=== PATIENT | male | born 1965 | race Caucasian/White ===

== ENCOUNTER 2016-10-08 03:49 | Emergency (ER) | payer SELFPAY | END 2016-10-08 03:50 | disposition home or self-care (01) | LOC: ER 03:49 | DX: L29.9 Pruritus, unspecified (principal); M79.641 Pain in right hand; M79.642 Pain in left hand; G89.29 Other chronic pain; B20 Human immunodeficiency virus [HIV] disease; F17.200 Nicotine dependence, unspecified, uncomplicated; Z88.0 Allergy status to penicillin; Z88.2 Allergy status to sulfonamides; Z88.8 Allergy status to other drugs, medicaments and biological substances | CPT/HCPCS: 96372; 99284; A9270-GY; J1200 ==

== ENCOUNTER 2016-10-20 13:12 | Observation (INO) | payer SELFPAY ==
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
--- NOTE | ~2016-10-20 | DS ---
Discharge Summary [address] [address] [facility] [place]. [address] NAME: PREETI HAYWOOD : 65 STATUS : DIS Mally PAT#: [id number] AGE: 51 ADM/REG DATE : 10/20/16 MR#: [id number] REPORT SERV DATE: 10/23/16 DICTATED BY: CJ JANE DATE: 10/22/16 REPORT STATUS : Draft TRANSCRIBED BY: MODL DATE: 10/22/16 ADMISSION DATE: 10/20/2016 DISCHARGE DATE: 10/22/2016 CONSULTANTS: 1. Eric Arnold M.D., Vascular Surgery. 2. Srinivas Lopez M.D., Infectious Disease. HOSPITAL COURSE: Please refer to yesterday's discharge summary. Dr. Srinivas Lopez had seen the patient and Dr. Arnold of Vascular Surgery. Dr. Arnold felt the patient's finger changes were typical of Buerger's disease and agreed with our recommendation for the discontinuation of all tobacco and the use of amlodipine, and he did not recommend any other further interventions at this point in time. I have left orders on 10/21/[address] Arnold was in agreement the patient could be discharged home thereafter; however, nursing did not comply with that. The patient did have the duplex arterial Doppler of his upper extremity revealing normal finding in the vasculature of his upper extremity. Discharge medications and plan will be the same as per the note from yesterday. Dr. Lopez's team is coordinating getting the patient's amlodipine covered by the [facility] [facility] and he will consider low-dose Lipitor given the patient's recent ischemic stroke when he was at [facility]; however, Dr. Lopez wants to evaluate that in the light of the other medicines the patient is taking and will order that himself. I spent 31 minutes today with the patient and with discharge planning. DICTATED BY: Cj Jane M.D. RSNaomy/MIS Cj Jane M.D. / [id number] CC: Meg Noguera M.D. Eric W Clayton, M.D.
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
[2016-10-20 15:05] LABS: BASOPHILS 0.6 %; BASOPHILS ABSOLUTE 0.06 10/3/uL (0.0-0.16); EOSINOPHILS 21.2 %; EOSINOPHILS ABSOLUTE 2.27 10/3/uL (0.0-0.53); HEMATOCRIT 37.6 % (40.0-51.0); HEMOGLOBIN 12.8 g/dL (13.6-17.8); IMMATURE GRANULOCYTES 0.2 %; IMMATURE GRANULOCYTES ABSOLUTE 0.02 10/3/uL (0.0-0.11); LYMPHOCYTES ABSOLUTE 0.96 10/3/uL (0.67-4.30); MEAN CORPUSCULAR HEMOGLOB 32.8 pg (26.0-34.0); MEAN CORPUSCULAR VOLUME 96.4 fL (80-100); MEAN PLATELET VOLUME 9.7 fL (9.2-13.0); MONOCYTES 7.1 %; MONOCYTES ABSOLUTE 0.76 10/3/uL (0.21-1.20); NEUTROPHILS 61.9 %; NEUTROPHILS ABSOLUTE 6.63 10/3/uL (2.02-8.40); PLATELET COUNT 307 10/3/uL (150-400); RBC DISTRIBUTION WIDTH 13.6 % (12.0-16.0); WHITE BLOOD CELLS 10.7 10/3/uL (4.5-10.5)
[2016-10-20 15:06] LABS: MANUAL DIFF NO %
[2016-10-20 15:14] LABS: PROTIME (NOT ORD) 12.8 SEC (12.0-14.5)
[2016-10-20 15:15] LABS: PARTIAL THROMBO TIME 31.5 SEC (22.5-37.2)
[2016-10-20 15:21] LABS: BUN (BLOOD UREA NITROGEN) 11 MG/DL (6-23); CALCIUM, SERUM 9.2 MG/DL (8.5-10.4); CHEST PAIN PROFILE TAT 0 Hrs 20 Mins; CHLORIDE, SERUM 108 MMOL/L (96-112); CO2 (CARBON DIOXIDE) 32 MMOL/L (24-34); CREATININE 0.75 MG/DL (0.70-1.30); GFR AFRICAN AMERICAN 123 ML/MIN (>=60); GFR NON AFRICAN AMERICAN 106 ML/MIN (>=60); GLUCOSE, SERUM 90 MG/DL (60-99); POTASSIUM, SERUM 4.2 MMOL/L (3.5-5.3); SODIUM, SERUM 142 MMOL/L (135-148); TROPONIN I <0.02 NG/ML (<0.05)
[2016-10-20 15:43] LABS: EOSINOPHILS 24 %; EOSINOPHILS ABSOLUTE (CALC) 2.57 10/3/uL (0.0-0.53); ER DIFF TAT 0 Hrs 42 Mins; LYMPHOCYTES 9 %; LYMPHOCYTES ABSOLUTE (CALC) 0.96 10/3/uL (0.67-4.30); MONOCYTES 6 %; MONOCYTES ABSOLUTE (CALC) 0.64 10/3/uL (0.21-1.20); NEUTROPHILS ABSOLUTE (CALC) 6.53 10/3/uL (2.02-8.40); SEGMENTED NEUTROPHIL (0) 61 %; TOTAL NUCLEATED CELLS 100
[2016-10-20 15:44] LABS: PLATELET ESTIMATE ADQ (ADEQUATE); RBC MORPHOLOGY NORM (NORMAL)
[2016-10-20] MEDS ORDERED: ISENTRESS400 MG PO (16:26)
[2016-10-20] MEDS ORDERED: ZITH600 PO (17:16)
[2016-10-20] MEDS ORDERED: [UNRECOGNIZED DRUG - OTHER] PO (17:16)
[2016-10-20] MEDS ORDERED: ATARAX50B PO (17:18)
[2016-10-20] MEDS ORDERED: BACDS PO (17:18)
[2016-10-20] MEDS ORDERED: ASAB PO (17:19)
[2016-10-20] MEDS ORDERED: ACET500CAP PO (17:19)
[2016-10-20] MEDS ORDERED: ALEVE220 MG PO (17:21)
[2016-10-20] MEDS ORDERED: VITAMIN B-12 LIQUID PO (17:22)
[2016-10-20 18:32] LABS: T4 (THYROXINE) TOTAL 9.1 MCG/DL (4.5-12.0); ULTRASENSITIVE TSH 2.02 MCIU/ML (0.358-3.740)
[2016-10-22] MEDS ORDERED: NORV5 PO (09:56)
[2016-10-22] MEDS ORDERED: T PO (09:56)
[2016-10-22] MEDS ORDERED: HABIT14 TOP (09:57)
== END 2016-10-22 16:17 | disposition home or self-care (01) ==
LOC: ER 13:12 → 1SO 19:34
PROVIDERS: Emergency Medicine
DX: R55 Syncope and collapse (principal); B20 Human immunodeficiency virus [HIV] disease; I73.9 Peripheral vascular disease, unspecified; F17.210 Nicotine dependence, cigarettes, uncomplicated; D72.819 Decreased white blood cell count, unspecified; D69.6 Thrombocytopenia, unspecified; Z88.0 Allergy status to penicillin; Z88.2 Allergy status to sulfonamides; Z88.8 Allergy status to other drugs, medicaments and biological substances; Z86.73 Personal history of transient ischemic attack (TIA), and cerebral infarction without residual deficits; Z79.82 Long term (current) use of aspirin; Z79.899 Other long term (current) drug therapy
CPT/HCPCS: 70450; 71010; 80048; 82955; 83735; 83880; 84436; 84443; 84484; 85025; 85610; 85730; 93005; 93923; 96372; 99291; A9270-GY; G0378

== ENCOUNTER 2016-10-27 12:00 | Inpatient (IN) | payer SELFPAY ==
--- NOTE | ~2016-10-27 | DS ---
Discharge Summary [facility] [address] [place]. [address] NAME: PREETI HAYWOOD : 65 STATUS : DIS IN PAT#: [id number] AGE: 51 ADM/REG DATE : 10/27/16 MR#: [id number] REPORT SERV DATE: 11/01/16 DICTATED BY: NIKOLAS LONDON DATE: 10/31/16 REPORT STATUS : Draft TRANSCRIBED BY: MODL DATE: 10/31/16 ADMISSION DATE: 10/27/2016 DISCHARGE DATE: 10/31/2016 REASON FOR ADMISSION: The patient came in with chief complaint of recurrent syncope, 51-year old male with a history of HIV, Buerger's disease, and CVA. DISCHARGE DIAGNOSES: 1. Recent syncope due to third-degree AV block, status post permanent pacemaker placement. 2. Human immunodeficiency virus/acquired immunodeficiency syndrome. 3. Hypertension. HOSPITAL COURSE: The patient was admitted and had Cardiology consult, was placed on telemetry and found to have a third-degree complete heart block. Dr. Simms was consulted as well. Originally, Dr. Gallegos had been consulted and then Dr. Simms was consulted for permanent pacemaker placement. The third-degree AV block was felt to be due to myocarditis. The patient had elevated CRP of 16.5 and ESR of 32. Infectious Disease saw the patient and did workup for occult infection, which has not turned up anything, so myocarditis is of unclear etiology. Dr. Simms would place the patient's permanent pacemaker. He has done well. Pacemaker functioning properly. The patient does have HIV/AIDS with CD4 count done here at the hospital, absolute CD4 is 96. He sees an HIV Clinic in [place], [place], that he will follow up with outpatient. The patient has been cleared by discharge by both Infectious Disease, Dr. Lopez, and Cardiology, Dr. Luis Eduardo Gallegos. The patient will follow up with Dr. Gallegos in six to eight weeks and with his HIV Clinic as scheduled. The patient does not have a prior primary care provider. Apparently, he is currently self-pay, but apparently will have [facility] benefits by the end of the month, so encouraged him to get in and see primary care with [facility] at the end of the month. DISCHARGE CONDITION: Stable. DISCHARGE MEDICATIONS: 1. Norvasc 5 mg p.o. daily. 2. Dapsone 100 mg p.o. q.h.s. 3. Hydrocodone 7.5/325 one tablet q.4-6 hours p.r.n. 4. Atarax 50 mg p.o. q.6 hours p.r.n. itching. 5. Vitamin B12, 1 mL sublingual daily. 6. Aspirin 81 mg p.o. daily. 7. Isentress 400 mg p.o. b.i.d. DISCHARGE PLAN: The patient is discharged home. Follow up with his HIV Clinic as scheduled. Establish primary care with the SD and follow up with Cardiology in six to eight weeks. DICTATED BY: Nikolas London APN Discharge Summary [address] [facility] [address] NAME: PREETI HAYWOOD : 65 STATUS : DIS IN PAT#: [id number] AGE: 51 ADM/REG DATE : 10/27/16 MR#: [id number] REPORT SERV DATE: 11/01/16 DICTATED BY: NIKOLAS LONDON DATE: 10/31/16 REPORT STATUS : Draft TRANSCRIBED BY: MIS DATE: 10/31/16 TDR/MIS Nikolas London APN / [id number] CC: Uriel Molina M.D. Srinivas Lopez M.D. Luis Eduardo Gallegos M.D. Fabio Simms M.D. [facility]
--- NOTE | ~2016-10-27 | CN ---
Consultation Report [facility] [address] [place]. [address] NAME: PREETI HAYWOOD : 65 STATUS : ADM Mally PAT#: [id number] AGE: 51 ADM/REG DATE : 10/27/16 MR#: [id number] REPORT SERV DATE: 10/29/16 DICTATED BY: MIRIAM SIMMS DATE: 10/28/16 REPORT STATUS : Draft TRANSCRIBED BY: MODAugustin DATE: 10/28/16 EP CONSULTATION DATE OF CONSULTATION: INDICATION: Syncope with complete transient AV block. HISTORY: The patient is a 51-year-old white male with a somewhat odd medical history. He was recently seen in [facility] with a TIA and readmitted with a syncopal spell recently at [facility]. The episode was felt to be vasovagal and he was sent home. He was placed on hydroxyzine, but continued to have spells. His states that they usually lasted less than a minute. They were associated with deep and hard breathing. During a portion of that time, he would be unresponsive, if she came over and shook him, she could get a response. He often was fatigued the remainder of the day. In the day prior to admission, he had two events; the week prior to admission, he had four events. Last night, he had several falls from his bed. He has no fever or chills. His main symptoms are chronic pain as well as fatigue. CURRENT HOME MEDICATIONS: Acetaminophen as directed, aspirin 81 a day, hydrocodone APAP 7.5/325 a day, hydroxyzine 50 q.8 hours p.r.n., raltegravir, potassium 400 b.i.d. vitamin B12 daily, amlodipine 5 a day, Claritin 10 per day, which he takes on his own. ALLERGIES OR INTOLERANCES: Sulfamethoxazole and trimethoprim from Bactrim (rash), sulfa containing antibiotics, codeine, lamivudine, abacavir, dolutegravir, all causing fever. SOCIAL HISTORY: He continues to smoke but is trying to quit. FAMILY HISTORY: Positive for coronary artery disease. He states his mother had some type of heart problem. He has a half sister with a defibrillator. PAST MEDICAL HISTORY/REVIEW OF SYSTEMS: Positive for HIV and Buerger's disease as noted above. 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 PHYSICAL EXAMINATION: GENERAL: Pleasant 51-year-old white male. VITAL SIGNS: Blood pressure 139/90, pulse 90 and regular, respirations 16. SKIN: No xanthelasmas. HEENT: Normocephalic. There is no pallor. Sclerae white. JVD is not elevated. CHEST: No crackles cardiac S1 normal, S2 physiologic. Abdomen soft extremities without edema. No clubbing. NEUROLOGIC: No focal deficits musculoskeletal no kyphosis. Consultation Report [place] [id number] [facility] [place]. [address] NAME: PREETI HAYWOOD : 65 STATUS : ADM Mally PAT#: [id number] AGE: 51 ADM/REG DATE : 10/27/16 MR#: [id number] REPORT SERV DATE: 10/29/16 DICTATED BY: MIRIAM SIMMS DATE: 10/28/16 REPORT STATUS : Draft TRANSCRIBED BY: MIS DATE: 10/28/16 LABORATORY DATA: BUN 14, creatinine 0.8. Hemoglobin 12.2, platelets 202,000. BNP 23.8. The baseline ECG shows sinus rhythm. Rhythm strips showed episodes of complete AV block with junctional escape beats. IMPRESSION: Transient symptomatic complete atrioventricular block. The patient will require pacemaker support. Risks and benefits have been discussed with the patient and his sister. NIKO/MIS Miriam Simms M.D. / [id number] CC: Uriel Molina M.D.
--- NOTE | ~2016-10-27 | HP ---
History And Physical [id number] [facility] [place]. [address] NAME: PREETI RODRIGUEZ : 65 STATUS : ADM Mally PAT#: [id number] AGE: 51 ADM/REG DATE : 10/27/16 MR#: [id number] REPORT SERV DATE: 10/27/16 DICTATED BY: KAREN CARBAJAL DATE: 10/27/16 REPORT STATUS : Draft TRANSCRIBED BY: MODL DATE: 10/27/16 DATE OF ADMISSION: 10/27/2016 REASON FOR ADMISSION: Recurrent syncope. HISTORY OF PRESENT ILLNESS: Mr. Rodriguez is a 51-year-old male with HIV, Buerger's disease, and a history of recent stroke, for which he was hospitalized in [place], [place], and ultimately released home, where he was readmitted here with recurrent syncopal spell, which was felt to be vasovagal due to the circumstances of psychosocial stressor. The patient has been home. He says he still feels strange after he takes hydroxyzine and has had episodes, where he feels like he has double vision with left-sided numbness lasting less than a minute with subsequent syncopal spell, somewhat groggy when he wakes up. In the wee hours this morning, however, the patient had been in bed and his sister heard a big thump on the ground. The patient fell out of bed without knowing that he had fallen. No memory of the fall, no memory of any strange dreams occurring before then. He woke without chest pain, but with mild cloudiness to his sensorium. This happened two times last night. He came to the emergency department for further evaluation and I was asked to admit. The patient denies fever and chills. Denies weight loss. Denies any difference in the swelling of his limbs. He does have chronic pain in his fingers from his Buerger's disease. He acknowledges most significantly very poor sleep. He has taken the hydroxyzine, which makes him fall asleep, but he cannot stay asleep. His sleep has been extremely disrupted in recent times. He also has episodes of dizziness, palpitations, and heavy breathing, but no history of convulsions. The patient denies headache. No nausea or vomiting. No other pains. REVIEW OF SYSTEMS: Remainder of review of systems are negative. PAST MEDICAL HISTORY: As mentioned above. MEDICATIONS: Aspirin, Lortab, Atarax, Isentress, B12, and Descovy. ALLERGIES: MULTIPLE ALLERGIES. FAMILY HISTORY: Significant for cardiovascular disease. SOCIAL HISTORY: The patient remains a smoker, although he says he is trying to quit. PHYSICAL EXAMINATION: VITAL SIGNS: On presentation, blood pressure 139/95, pulse 90, respirations 16, afebrile, and saturating 95%. GENERAL: Awake, alert, and oriented x3, in no apparent distress. HEENT: Pupils equal and reactive to light. Extraocular movements are intact. No cranial nerve deficits. Moist mucous membranes. Normal oropharynx. NECK: Revealed no jugular venous distention, carotid bruits, lymphadenopathy, or goiter. CARDIAC: Regular rate and rhythm. No murmurs, gallops, or rubs. History And Physical [address] [address] NAME: PREETI RODRIGUEZ : 65 STATUS : ADM Mally PAT#: [id number] AGE: 51 ADM/REG DATE : 10/27/16 MR#: [id number] REPORT SERV DATE: 10/27/16 DICTATED BY: KAREN CARBAJAL DATE: 10/27/16 REPORT STATUS : Draft TRANSCRIBED BY: MIS DATE: 10/27/16 LUNGS: Clear to auscultation bilaterally. Good excursion. ABDOMEN: Nondistended and nontender. Bowel sounds normoactive. EXTREMITIES: No edema. He did have significant acrocyanosis strictly of his fingers and he had digital clubbing in all fingers and toes. Some ischemic ulcers are present on some of his fingers as well. NEUROLOGIC: 5/5 strength in all four extremities. Normal sensory function x4 other than some finger tip numbness. He had normal rawqhy-dz-xhgn test. No visual field deficits. PSYCHIATRIC: Appropriate. LABORATORY EVALUATION: Sodium 140, potassium 4.1, chloride 110, bicarb 28, BUN 14, creatinine 0.8, glucose 115. White count 8000, H and H 13/37, platelets 202. D-dimer was negative. CBC also significant for eosinophilia. Urine drug screen positive for opiates. CT brain was negative. Chest x-ray was negative, reviewed by me. EKG reviewed by me was normal sinus rhythm. No ST or T-wave changes. ASSESSMENT AND PLAN: 1. Spells of recurrent syncope with a recent stroke workup in [place]. This is not a primary cerebrovascular event based on the symptoms; however, seizure is on the differential diagnosis, tachyarrhythmias are as well, but I think it is most likely due to hydroxyzine side effects and severe sleep disruption. We will have him in telemetry over night. We will get the records from [place]. We will screen his BNP, his prolactin levels, and an EEG will be done for the sake of completeness. Hydroxyzine will be discontinued. Other antiallergy therapies will be used such as Claritin and Pepcid. We will also try to help him with restoring his sleep by initiating trazodone therapy, which also should be noted to have significant antihistamine effect. 2. Buerger's disease. Strong recommendation to quit smoking, nothing else to say. 3. 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 I do not know his CD4 count. We will check that. 4. Eosinophilia as mentioned. RSM/MODL Karen Carbajal M.D. / [id number] CC: Meg Zamarripa M.D.
--- NOTE | ~2016-10-27 | HP ---
History And Physical [id number] [place]. [address] NAME: PARDEEP RODRIGUEZ : 65 STATUS : ADM Mally PAT#: [id number] AGE: 51 ADM/REG DATE : 10/27/16 MR#: [id number] REPORT SERV DATE: 10/28/16 DICTATED BY: LUIS EDUARDO GALLEGOS DATE: 10/28/16 REPORT STATUS : Draft TRANSCRIBED BY: MODL DATE: 10/28/16 DATE OF ADMISSION: 10/27/2016 REASON FOR ADMISSION: Pardeep Rodriguez is a 51-year-old male, who is referred for complete heart block. CVD PHYSICIAN: Luis Eduardo Gallegos M.D. HISTORY OF PRESENT ILLNESS: Mr. Pardeep Rodriguez has had a long history of recurrent episodes of dizziness and passing out. He was seen apparently at [facility] two years ago, and at that time, he was told bottom part of the heart does not talk to the top part of his heart and a pacemaker was recommended, but then he got so much better, he said that they sent him home. He continues of have frequent spells of passing out sometimes up to two to three times a day. They last one to two minutes. REVIEW OF SYSTEMS: No chest pain or chest discomfort. No seizure activity. No loss of bowel or bladder control. He does have dermatitis. No petechiae. No lower extremity edema. No palpitations. SOCIAL HISTORY: He smokes, but does not drink. He works as a commercial estimator. FAMILY HISTORY: Negative for early heart disease. PHYSICAL EXAMINATION: VITAL SIGNS: Blood pressure is 117/66, pulse is 77, and he is afebrile. GENERAL: Resting comfortably. Nutritional status appears adequate. EYES: PERRLA. LUNGS: No labored use of accessory muscles. Without rales or wheezes. COR: PMI is not displaced. No thrills or heaves. NL S1 and S2. No S3, murmur, click or rub. PULSES: Carotids without bruits. ABD: +BS, nontender. EXT: No cyanosis, clubbing or edema. SKIN: No petechiae. NEURO: Alert and oriented. Does not appear anxious or depressed. LABORATORY EVALUATION: Telemetry shows episodes of complete heart block preceded by a normal SD interval beat. ASSESSMENT: At this time, intermittent complete heart block, will require pacemaker placement. I have discussed this with him and he understands and agrees to proceed. GG/ERNIEL History And Physical [place] [id number] [facility] [address] [place] [address]. [address] NAME: PARDEEP RODRIGUEZ : 65 STATUS : ADM Mally PAT#: [id number] AGE: 51 ADM/REG DATE : 10/27/16 MR#: [id number] REPORT SERV DATE: 10/28/16 DICTATED BY: LUIS EDUARDO GALLEGOS DATE: 10/28/16 REPORT STATUS : Draft TRANSCRIBED BY: MIS DATE: 10/28/16 Luis Eduardo Gallegos M.D. / [id number] CC: Uriel Molina M.D. NO PCP
[2016-10-27 11:50] LABS: BASOPHILS 0.5 %; BASOPHILS ABSOLUTE 0.04 10/3/uL (0.0-0.16); EOSINOPHILS 17.4 %; EOSINOPHILS ABSOLUTE 1.32 10/3/uL (0.0-0.53); ER CBC TAT 0 Hrs 09 Mins; HEMATOCRIT 37.4 % (40.0-51.0); HEMOGLOBIN 12.7 g/dL (13.6-17.8); IMMATURE GRANULOCYTES 0.1 %; IMMATURE GRANULOCYTES ABSOLUTE 0.01 10/3/uL (0.0-0.11); LYMPHOCYTES 12.1 %; LYMPHOCYTES ABSOLUTE 0.92 10/3/uL (0.67-4.30); MEAN CORPUSCULAR HEMOGLOB 32.7 pg (26.0-34.0); MEAN CORPUSCULAR VOLUME 96.4 fL (80-100); MEAN PLATELET VOLUME 9.6 fL (9.2-13.0); MONOCYTES 7.3 %; MONOCYTES ABSOLUTE 0.55 10/3/uL (0.21-1.20); NEUTROPHILS 62.6 %; NEUTROPHILS ABSOLUTE 4.74 10/3/uL (2.02-8.40); RBC DISTRIBUTION WIDTH 13.5 % (12.0-16.0); RED CELL COUNT 3.88 10/6/uL (4.7-6.1); WHITE BLOOD CELLS 7.6 10/3/uL (4.5-10.5)
[2016-10-27 11:51] LABS: MANUAL DIFF NO %; PLATELET COUNT 202 10/3/uL (150-400)
[2016-10-27 11:59] LABS: PARTIAL THROMBO TIME 31.1 SEC (22.5-37.2); PROTIME (NOT ORD) 13.5 SEC (12.0-14.5)
[~2016-10-27 12:00] MED LIST: ACET500CAP PO; ALEVE220 MG PO; ASAB PO; ATARAX50B PO; BACDS PO; HABIT14 TOP; ISENTRESS400 MG PO; NORV5 PO; T PO; VITAMIN B-12 LIQUID PO; ZITH600 PO; [UNRECOGNIZED DRUG - OTHER] PO
[2016-10-27 12:07] LABS: ALBUMIN 3.4 G/DL (3.5-5.0); BUN (BLOOD UREA NITROGEN) 14 MG/DL (6-23); CALCIUM, SERUM 9.1 MG/DL (8.5-10.4); CHEST PAIN PROFILE TAT 0 Hrs 26 Mins; CHLORIDE, SERUM 107 MMOL/L (96-112); CO2 (CARBON DIOXIDE) 28 MMOL/L (24-34); GFR AFRICAN AMERICAN 120 ML/MIN (>=60); GFR NON AFRICAN AMERICAN 103 ML/MIN (>=60); POTASSIUM, SERUM 4.1 MMOL/L (3.5-5.3); SGOT(AST) 11 U/L (5-40); SGPT(ALT) 17 U/L (5-65); SODIUM, SERUM 140 MMOL/L (135-148); TOTAL BILIRUBIN 0.4 MG/DL (0-1.2); TOTAL PROTEIN 7.6 G/DL (6.0-8.5); TROPONIN I <0.02 NG/ML (<0.05)
[2016-10-27 12:08] LABS: ACETAMINOPHEN LEVEL (TYLENOL) < 2.0 MCG/ML (10.0-20.0); ALCOHOL < 10 MG/DL (0); ALKALINE PHOSPHATASE 82 U/L (45-117); DIRECT BILIRUBIN < 0.1 MG/DL (0.0-0.4); GLUCOSE, SERUM 115 MG/DL (60-99); INDIRECT BILIRUBIN(NOT ORDER) 0.3 MG/DL (0.1-0.9)
[2016-10-27 12:10] LABS: D-DIMER QUANTITATIVE 0.55 ug/mLFEU (< 0.50)
[2016-10-27 12:12] LABS: AMPHETAMINES (NOT ORD) NEG (NEG); BARBITURATES (NOT ORDERED NEG (NEG); BENZODIAZEPINES (NOT ORD) NEG (NEG); CANNABINOIDS (THC) NEG (NEG); COCAINE (NOT ORDERED) NEG (NEG); OPIATES POS (NEG); PHENCYCLIDINE(PCP) NEG (NEG); TRICYCLICS NEG (NEG)
[2016-10-27] MEDS ORDERED: NORCO1 TA2 PO (17:14)
[2016-10-27] MEDS ORDERED: ATARAX50B PO (17:15)
[2016-10-27] MEDS ORDERED: ASAB PO (17:16)
[2016-10-27] MEDS ORDERED: ISENTRESS400 MG PO (17:16)
[2016-10-27] MEDS ORDERED: VITAMIN B SL (17:16)
[2016-10-27] MEDS ORDERED: ACET500CAP PO (17:17)
[2016-10-29 04:54] LABS: BASOPHILS ABSOLUTE 0.06 10/3/uL (0.0-0.16); EOSINOPHILS 23.8 %; EOSINOPHILS ABSOLUTE 1.41 10/3/uL (0.0-0.53); HEMATOCRIT 37.4 % (40.0-51.0); HEMOGLOBIN 12.9 g/dL (13.6-17.8); IMMATURE GRANULOCYTES 0.2 %; IMMATURE GRANULOCYTES ABSOLUTE 0.01 10/3/uL (0.0-0.11); LYMPHOCYTES ABSOLUTE 0.95 10/3/uL (0.67-4.30); MEAN CORPUS HGB CONC 34.5 g/dL (32.0-36.0); MEAN CORPUSCULAR HEMOGLOB 32.7 pg (26.0-34.0); MEAN CORPUSCULAR VOLUME 94.9 fL (80-100); MEAN PLATELET VOLUME 9.6 fL (9.2-13.0); MONOCYTES 8.1 %; MONOCYTES ABSOLUTE 0.48 10/3/uL (0.21-1.20); NEUTROPHILS 50.9 %; NEUTROPHILS ABSOLUTE 3.02 10/3/uL (2.02-8.40); PLATELET COUNT 184 10/3/uL (150-400); RBC DISTRIBUTION WIDTH 13.4 % (12.0-16.0); RED CELL COUNT 3.94 10/6/uL (4.7-6.1); WHITE BLOOD CELLS 5.9 10/3/uL (4.5-10.5)
[2016-10-29 04:56] LABS: MANUAL DIFF NO %
[2016-10-29 05:08] LABS: C-REACTIVE PROTEIN 16.5 MG/L (<8.0); CHLORIDE, SERUM 109 MMOL/L (96-112); CO2 (CARBON DIOXIDE) 26 MMOL/L (24-34); CREATININE 0.88 MG/DL (0.70-1.30); GFR AFRICAN AMERICAN 115 ML/MIN (>=60); GFR NON AFRICAN AMERICAN 99 ML/MIN (>=60); GLUCOSE, SERUM 99 MG/DL (60-99); POTASSIUM, SERUM 3.9 MMOL/L (3.5-5.3); SODIUM, SERUM 141 MMOL/L (135-148)
[2016-10-29 05:09] LABS: BUN (BLOOD UREA NITROGEN) 20 MG/DL (6-23); RHEUMATOID FACTOR QUANT < 10 IU/ML (0-15)
[2016-10-29 08:56] LABS: SED RATE 32 MM/HR (0-15)
[2016-10-30 05:38] LABS: BASOPHILS 0.5 %; BASOPHILS ABSOLUTE 0.06 10/3/uL (0.0-0.16); EOSINOPHILS 12.9 %; EOSINOPHILS ABSOLUTE 1.46 10/3/uL (0.0-0.53); HEMATOCRIT 38.4 % (40.0-51.0); HEMOGLOBIN 12.8 g/dL (13.6-17.8); IMMATURE GRANULOCYTES 0.4 %; IMMATURE GRANULOCYTES ABSOLUTE 0.04 10/3/uL (0.0-0.11); MEAN CORPUS HGB CONC 33.3 g/dL (32.0-36.0); MEAN CORPUSCULAR HEMOGLOB 31.4 pg (26.0-34.0); MEAN CORPUSCULAR VOLUME 94.1 fL (80-100); MEAN PLATELET VOLUME 9.9 fL (9.2-13.0); MONOCYTES 5.1 %; MONOCYTES ABSOLUTE 0.58 10/3/uL (0.21-1.20); NEUTROPHILS 73.1 %; NEUTROPHILS ABSOLUTE 8.26 10/3/uL (2.02-8.40); PLATELET COUNT 184 10/3/uL (150-400); RBC DISTRIBUTION WIDTH 13.6 % (12.0-16.0); RED CELL COUNT 4.08 10/6/uL (4.7-6.1)
[2016-10-30 05:39] LABS: BUN (BLOOD UREA NITROGEN) 22 MG/DL (6-23); CALCIUM, SERUM 9.1 MG/DL (8.5-10.4); CHLORIDE, SERUM 108 MMOL/L (96-112); CO2 (CARBON DIOXIDE) 26 MMOL/L (24-34); CREATININE 0.96 MG/DL (0.70-1.30); GFR AFRICAN AMERICAN 106 ML/MIN (>=60); GFR NON AFRICAN AMERICAN 91 ML/MIN (>=60); GLUCOSE, SERUM 104 MG/DL (60-99); POTASSIUM, SERUM 3.8 MMOL/L (3.5-5.3); SODIUM, SERUM 142 MMOL/L (135-148)
[2016-10-30 05:53] LABS: MANUAL DIFF NO %; WHITE BLOOD CELLS 11.3 10/3/uL (4.5-10.5)
[2016-10-30 13:55] LABS: CD4/CD8 RATIO 0.16 to 1.0 (1.00-3.00); CD8 72.6 % (12.0-38.0); LYMPHOCYTES 11.7 % (15.0-48.0); SOURCE Blood (()); WBC 7.1 K/uL (3.8-11.0)
[2016-10-31 05:31] LABS: BASOPHILS 0.5 %; BASOPHILS ABSOLUTE 0.04 10/3/uL (0.0-0.16); EOSINOPHILS 17.1 %; EOSINOPHILS ABSOLUTE 1.39 10/3/uL (0.0-0.53); HEMATOCRIT 36.1 % (40.0-51.0); HEMOGLOBIN 12.4 g/dL (13.6-17.8); IMMATURE GRANULOCYTES 0.1 %; IMMATURE GRANULOCYTES ABSOLUTE 0.01 10/3/uL (0.0-0.11); LYMPHOCYTES 12.1 %; LYMPHOCYTES ABSOLUTE 0.98 10/3/uL (0.67-4.30); MEAN CORPUS HGB CONC 34.3 g/dL (32.0-36.0); MEAN CORPUSCULAR HEMOGLOB 32.1 pg (26.0-34.0); MEAN CORPUSCULAR VOLUME 93.5 fL (80-100); MEAN PLATELET VOLUME 9.8 fL (9.2-13.0); MONOCYTES 7.5 %; MONOCYTES ABSOLUTE 0.61 10/3/uL (0.21-1.20); NEUTROPHILS 62.7 %; NEUTROPHILS ABSOLUTE 5.08 10/3/uL (2.02-8.40); PLATELET COUNT 156 10/3/uL (150-400); RBC DISTRIBUTION WIDTH 13.5 % (12.0-16.0); RED CELL COUNT 3.86 10/6/uL (4.7-6.1); WHITE BLOOD CELLS 8.1 10/3/uL (4.5-10.5)
[2016-10-31 05:33] LABS: MANUAL DIFF NO %
[2016-10-31 05:44] LABS: BUN (BLOOD UREA NITROGEN) 21 MG/DL (6-23); CHLORIDE, SERUM 106 MMOL/L (96-112); CO2 (CARBON DIOXIDE) 27 MMOL/L (24-34); CREATININE 0.84 MG/DL (0.70-1.30); GFR AFRICAN AMERICAN 117 ML/MIN (>=60); GFR NON AFRICAN AMERICAN 101 ML/MIN (>=60); GLUCOSE, SERUM 90 MG/DL (60-99); SODIUM, SERUM 137 MMOL/L (135-148)
[2016-10-31] MEDS ORDERED: NORV5 PO (11:38)
[2016-10-31] MEDS ORDERED: DAPSONE 100 MG100 MG PO (11:39)
[2016-11-01 23:09] LABS: ANCA <1:20 (()); MYELOPEROXIDASE ANTIBODY <0.2 AI (<1.0); PROTEINASE 3 ANTIBODY <0.2 AI (<1.0)
== END 2016-10-31 15:55 | disposition home or self-care (01) | DRG 242 ==
LOC: ER 12:00 → CDU1 17:33 → CDU2 17:43 → SSU1 10-28 15:41 → 7NO 10-30 13:25
PROVIDERS: Emergency Medicine; Internal Medicine; Internal Medicine Clinical Cardiac Electrophysiology; Internal Medicine Infectious Disease
PROC: 0JH606Z Insertion of Pacemaker, Dual Chamber into Chest Subcutaneous Tissue and Fascia, Open Approach (ICD-10-PCS; principal; 2016-10-29)
PROC: 02HK3JZ Insertion of Pacemaker Lead into Right Ventricle, Percutaneous Approach (ICD-10-PCS; 2016-10-29)
PROC: 02H63JZ Insertion of Pacemaker Lead into Right Atrium, Percutaneous Approach (ICD-10-PCS; 2016-10-29)
DX: I44.2 Atrioventricular block, complete (principal); B20 Human immunodeficiency virus [HIV] disease; D72.1 Eosinophilia; I25.10 Atherosclerotic heart disease of native coronary artery without angina pectoris; F17.210 Nicotine dependence, cigarettes, uncomplicated; K59.00 Constipation, unspecified; I73.1 Thromboangiitis obliterans [Buerger's disease]; W06.XXXA Fall from bed, initial encounter; I51.4 Myocarditis, unspecified; Z91.81 History of falling; Z86.73 Personal history of transient ischemic attack (TIA), and cerebral infarction without residual deficits; Z79.82 Long term (current) use of aspirin
CPT/HCPCS: 33208; 70450; 71010; 75561; 80048; 80076; 80305; 80307; 82140; 82550; 83516; 83516-59; 83605; 83735; 83880; 84145; 84484; 85025; 85379; 85610; 85652; 85730; 86140; 86255; 86360; 86431; 87327; 93005; 96374; 99285; A9270-GY; A9577; C1785; C1892; C1898; J0690; J1170; J2250; J2370; J2405; J3010; Q9967